=== PATIENT | male | born 2000 | race Hispanic/Latino ===

== ENCOUNTER 2019-08-28 21:03 | Inpatient (IN) | payer OTHER, SELFPAY ==
[~2019-08-28 21:03] MED LIST: Iopamidol 370 76% 100 ML VIAL ONE
[2019-08-28 21:33] LABS: Hemoglobin 14.7 g/dL (14.0-18.0); Mean Corpuscular HGB CONC 32.4 g/dL (32.0-36.0); Mean Corpuscular Hemoglobin 28.5 pg (25.0-35.0); Mean Corpuscular Volume 87.8 fL (78.0-98.0); Mean Platelet Volume 7.3 fL (7.4-10.4); Platelet Count 208 thou/uL (130-400); RBC Distribution Width 12.4 % (11.5-14.5); Red Blood Cell (RBC) Count 5.14 mill/uL (4.00-5.20); White Blood Cell (WBC) Count 18.2 thou/uL (4.8-10.8)
[2019-08-28 21:42] LABS: Actual Bicarbonate (HCO3a) 15.4 mEq/L (22-28); Analyzer IN Cardio ER; Base Excess (BEa) -19.8 mEq/L (-2.0 to +3.0); Carboxyhemoglobin (COHb) 0.3 gm% (0.0-3.0); Hemoglobin (Hb) 14.7 g/dL (11.4-15.4); O2 Tension (PaO2) 68.2 mmHg (80.0-100.0); Potassium - ABG Lab 4.11 mmol/L (3.70-5.30)
[2019-08-28 21:49] LABS: ALT (SGPT) 147 U/L (8-55); AST (SGOT) 157 U/L (10-45); Albumin 3.9 g/dL (3.5-5.0); Alcohol Less than 10 mg/dL (Less than 10); Alkaline Phosphatase 101 U/L (50-130); Anion Gap 29 mmol/L (10-20); BUN (Urea Nitrogen) 14 mg/dL (8.4-21.0); Bilirubin, Total 0.5 mg/dL (0.2-1.2); Calc. Creatinine Clearance 0 mL/min (70-130); Calcium 8.2 mg/dL (7.8-10.44); Carbon Dioxide 18 mmol/L (22-29); Chloride 96 mmol/L (98-107); Estimated GFR-MDRD 36; Globulin 2.5 g/dL (2.4-3.5); Glucose 383 mg/dL (70-105); Potassium 4.7 mmol/L (3.5-5.1); Protein, Total 6.4 g/dL (6.0-8.3); Sodium 138 mmol/L (136-145)
[2019-08-28 21:50] LABS: Acetaminophen Less than 6.0 mcg/mL (10.0-30.0); Alcohol Less than 10 mg/dL (Less than 10); Salicylate Less than 8.0 mg/dL (15.0-30.0)
[2019-08-28 21:51] LABS: Band 23 % (5-11); Lymphocytes 23 % (28-48); MDiff Complete? YES; Monocytes 5 % (0-4); Neutrophil 26 % (31-61); Platelet Morphology Comment Appears Adequate; Polychromasia SLIGHT = 2-3 cells (100X) (0-2/hpf); Reactive Lymphocytes 23 % (0-10)
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
[2019-08-28] MEDS ORDERED: Midazolam HCl 2 mg/2 ml Vial ONE (22:24)
[2019-08-28] MEDS ORDERED: Fentanyl 100 MCG/2 ML VIAL ONE ×2 (22:24→23:20)
--- NOTE | 2019-08-28 22:24 | RAD ---
XR Chest 1 View History: Emergency exam Comparison: None Findings: Stomach is distended. A catheter projects over the left upper hemithorax of unknown locatio n. Left basilar pneumothorax. Likely left rib fractures. Dense left lung opacities. Impression: Limited exam. Markedly gaseous distention of the stomach.
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
[2019-08-28] MEDS ORDERED: Sodium Bicarbonate 2.5 MEQ/5 ML VIAL ONE (22:29)
[2019-08-28] MEDS ORDERED: Sodium Bicarb 50 MEQ/50 ML VIAL ONE (22:29)
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
[2019-08-28] MEDS ORDERED: Dextrose 50% Abboject 50 ML SYRINGE SLOW IVP PRN (23:20)
[2019-08-28] MEDS ORDERED: Dextrose 5% in Water 1,000 ML IV PRN (23:20)
[2019-08-28] MEDS ORDERED: Ondansetron PF 4 MG/2 ML Vial IVP PRN (23:20)
[2019-08-28] MEDS ORDERED: Insulin Regular 300 UNITS/3 ML VIAL SC PRN (23:20)
[2019-08-28] MEDS ORDERED: hydrALAZINE 20 MG/ML VIAL SLOW IVP PRN (23:20)
--- NOTE | 2019-08-28 23:21 | CT ---
CTA Angio Chest W WO Con History: Evaluate for bleeding. Comparison: None. Findings: CT in October chest performed after the intravenous administration of contrast. The left subclavian artery is patent. No active contrast extravasation of the subclavian or axillary artery. There is a blush of active contrast extravasation within the expected location of the anterior circum flex humeral artery. Fracture evaluation will be performed in the subsequent following CT exam. No definite acute aortic injury. Impression: 1. Large contrast extravasation in the left axilla on the expected location of the anterior circumfle x humeral artery. 2. Left mandibular angle and right parasymphyseal mandibular fracture is incompletely evaluated. Faci al CT recommended. 3. Please see cervical spine CT for additional fractures. The lower left vertebral artery does not ap pear to have a dissection. CODE: NINOSKA Bonilla
[2019-08-28] MEDS ORDERED: Ventilator Sedation Protocol 1 EACH FS SCH (23:30)
[2019-08-28] MEDS ORDERED: Lorazepam 2 MG/ML VIAL SLOW IVP PRN (23:31)
[2019-08-28] MEDS ORDERED: Fentanyl BOLUS 250 ML IVPB PRN (23:31)
[2019-08-28] MEDS ORDERED: Propofol BOLUS 1,000 MG/100 ML VIAL IV PRN (23:31)
[2019-08-28] MEDS ORDERED: DISCONTINUE PREVIOUS NARCOTIC PAIN MEDICATIONS AND BENZODIAZEPINES FS SCH (23:31)
[2019-08-28] MEDS ORDERED: Morphine 2 MG/ML SYRINGE SLOW IVP PRN (23:31)
[2019-08-28] MEDS: fentaNYL Citrate/PF 2,000 MCG in Sodium Chloride 0.9% 60 ML IV SCH (23:36)
[2019-08-28] MEDS: Sodium Chloride 0.9% 1,000 ML IV SCH (23:40)
[2019-08-28] MEDS: Propofol 1,000 MG/100 ML VIAL IV PRN (23:44)
--- NOTE | 2019-08-28 23:57 | RAD ---
XR Chest 1 View Portable History: Pneumothorax Comparison: Radiograph same day Findings: Slightly progressive rightward mediastinal shift. Impression: Worsening tension pneumothorax.
[2019-08-29] LABS: Actual Bicarbonate (HCO3a) 21.6 mEq/L (22-28); CO2 Tension 53.3 mmHg (35.0-45.0); Calcium, Ionized 1.03 mmol/L (1.12-1.30); Carboxyhemoglobin (COHb) 0.4 gm% (0.0-3.0); Hemoglobin (Hb) 9.5 g/dL (11.4-15.4); Potassium - ABG Lab 4.03 mmol/L (3.70-5.30)
[2019-08-29] MEDS ORDERED: Sodium Bicarb 50 MEQ/50 ML VIAL ONE (00:02)
[2019-08-29] MEDS ORDERED: Phenylephrine 10 MG/ML VIAL ONE ×2 (00:02→10:41)
[2019-08-29] MEDS ORDERED: Calcium Chloride 1 GM/10 ML Abboject SYRINGE ONE (00:02)
[2019-08-29 00:06] LABS: pH, Arterial 7.23 (7.35-7.45)
[2019-08-29 00:07] LABS: O2 Tension (PaO2) 57.3 mmHg (80.0-100.0); Puncture Site ALINE
[2019-08-29 00:09] LABS: ALV-art Gradient 589.075 (0-20)
[2019-08-29] MEDS: Sodium Chloride 0.9% 1,000 ML IV SCH ×5 (00:40→20:42)
[2019-08-29] MEDS ORDERED: Calcium Chloride 1 GM/10 ML Abboject SYRINGE IVP SCH ×2 (01:00→01:15)
[2019-08-29] MEDS ORDERED: Midazolam HCl 2 mg/2 ml Vial ONE (01:03)
[2019-08-29 01:06] LABS: Actual Bicarbonate (HCO3a) 19.3 mEq/L (22-28); Base Excess (BEa) -8.5 mEq/L (-2.0 to +3.0); CO2 Tension 49.4 mmHg (35.0-45.0); Calcium, Ionized 0.99 mmol/L (1.12-1.30); Carboxyhemoglobin (COHb) 0.6 gm% (0.0-3.0); Hemoglobin (Hb) 11.4 g/dL (11.4-15.4); Potassium - ABG Lab 4.04 mmol/L (3.70-5.30)
[2019-08-29 01:11] LABS: Puncture Site ALINE; pH, Arterial 7.21 (7.35-7.45)
[2019-08-29] MEDS ORDERED: Midazolam HCl 2 mg/2 ml Vial IVP ONE (01:20)
[2019-08-29] MEDS ORDERED: Vecuronium 10 MG VIAL IVP SCH (01:30)
[2019-08-29] MEDS ORDERED: Vecuronium Bromide 50 MG in Sodium Chloride 0.9% 250 ML 250 ML IV SCH (01:30)
[2019-08-29 02:54] VITALS: BMI 34.3
[2019-08-29 03:39] LABS: Actual Bicarbonate (HCO3a) 22.8 mEq/L (22-28); Base Excess (BEa) -3.1 mEq/L (-2.0 to +3.0); CO2 Tension 44.2 mmHg (35.0-45.0); Calcium, Ionized 1.16 mmol/L (1.12-1.30); Carboxyhemoglobin (COHb) 0.7 gm% (0.0-3.0); O2 Tension (PaO2) 63.3 mmHg (80.0-100.0); Potassium - ABG Lab 4.14 mmol/L (3.70-5.30); pH, Arterial 7.33 (7.35-7.45)
[2019-08-29 03:43] LABS: Puncture Site ALINE
[2019-08-29] MEDS ORDERED: CEFAZOLIN 2 GM in Premix Bag 1 BAG IVPB SCH ×2 (04:00→12:00)
[2019-08-29 04:55] LABS: INR-International Normal Ratio 1.1; Prothrombin Time 14.4 SEC (12.0-14.7)
[2019-08-29 04:57] LABS: Anion Gap 25 mmol/L (10-20); BUN (Urea Nitrogen) 14 mg/dL (8.4-21.0); Calc. Creatinine Clearance 121 mL/min (70-130); Calcium 8.6 mg/dL (7.8-10.44); Carbon Dioxide 20 mmol/L (22-29); Chloride 104 mmol/L (98-107); Estimated GFR-MDRD 54; Glucose 130 mg/dL (70-105); Magnesium 1.7 mg/dL (1.7-2.2); Phosphorus 4.4 mg/dL (2.3-4.7); Potassium 4.1 mmol/L (3.5-5.1); Sodium 145 mmol/L (136-145)
[2019-08-29 05:00] LABS: Lactic Acid 8.4 mmol/L (0.5-2.2)
[2019-08-29 05:09] LABS: CK (CPK) 5191 U/L (30-200)
[2019-08-29] MEDS ORDERED: Magnesium 2 GM/50 ML 2 GM in Premix Bag 1 BAG IVPB SCH (05:15)
[2019-08-29 05:16] LABS: Bacteria/HPF None Seen HPF (None Seen); Bilirubin Negative (Negative); Blood, Urine 2+ (Negative); Clarity Clear (Clear); Glucose, Urine (Dipstick) 100 mg/dL (Negative); Leukocyte Negative Leu/uL (Negative); Nitrite Negative (Negative); Protein, Urine (Dipstick) 50 mg/dL (Neg-Trace); RBC/HPF 0-3 HPF (0-3); Squamous Epithelial 0-3 HPF (0-3); Urobilinogen Normal mg/dL (Less than 2)
[2019-08-29 05:20] LABS: Urine Culture Reflex Yes Yes
[2019-08-29 05:23] LABS: Cocaine Metabolite Screen Not Detected (NotDetected); Medtox Reader # READER 4; Methamphetamine Not Detected (NotDetected); Opiate Screen Not Detected (NotDetected); Phencyclidine (PCP) Not Detected (NotDetected); THC/Cannabinoid Screen Not Detected (NotDetected)
[2019-08-29 05:24] LABS: Amphetamine Not Detected (NotDetected); Barbiturates Screen Not Detected (NotDetected); Benzodiazepine Screen Not Detected (NotDetected); Medtox Control Line Valid? VALID (VALID); Methadone Not Detected (NotDetected); Oxycodone Screen Not Detected (NotDetected); Tricyclic Screen Not Detected (NotDetected)
[2019-08-29] MEDS ORDERED: Sodium Chloride 0.9% 1,000 ML IV SCH ×2 (05:25→11:45)
[2019-08-29 05:34] LABS: Band 48 % (5-11); Eosinophils 2 % (0-10); Hemoglobin 10.4 g/dL (14.0-18.0); Lymphocytes 8 % (28-48); MDiff Complete? YES; Mean Corpuscular HGB CONC 35.5 g/dL (32.0-36.0); Mean Corpuscular Hemoglobin 30.6 pg (25.0-35.0); Mean Platelet Volume 7.5 fL (7.4-10.4); Monocytes 8 % (0-4); Neutrophil 34 % (31-61); Platelet Count 91 thou/uL (130-400); Platelet Morphology Comment Appears Decreased; RBC Distribution Width 13.2 % (11.5-14.5); Red Blood Cell (RBC) Count 3.41 mill/uL (4.00-5.20); White Blood Cell (WBC) Count 5.8 thou/uL (4.8-10.8)
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
[2019-08-29 05:59] LABS: Actual Bicarbonate (HCO3a) 21.9 mEq/L (22-28); Base Excess (BEa) -6.5 mEq/L (-2.0 to +3.0); CO2 Tension 57.4 mmHg (35.0-45.0); Carboxyhemoglobin (COHb) 0.6 gm% (0.0-3.0); Hemoglobin (Hb) 11.5 g/dL (11.4-15.4); Potassium - ABG Lab 4.18 mmol/L (3.70-5.30)
[2019-08-29 06:03] LABS: O2 Tension (PaO2) 43.5 mmHg (80.0-100.0); Puncture Site ALINE
[2019-08-29] MEDS ORDERED: Lidocaine 0.5%/Epinephrine 1:200,000 50 ml Vial ONE (06:50)
[2019-08-29] MEDS ORDERED: Thrombin 5000 UNITS/5 ML VIAL ONE (06:50)
[2019-08-29] MEDS ORDERED: Sodium Chloride 0.9% 10 ML ONE (06:50)
[2019-08-29] MEDS ORDERED: Norepinephrine 8 MG/0.9% NS 250 ML ONE (07:05)
[2019-08-29] MEDS: Norepinephrine 8 MG/0.9% NS 250 ML IVPB SCH (07:20)
[2019-08-29] MEDS ORDERED: Vecuronium 10 MG VIAL ONE (07:22)
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
[2019-08-29] MEDS ORDERED: Nitroglycerin 50 MG/250 ML BOT 250 ML ONE (07:34)
[2019-08-29] MEDS ORDERED: niCARdipine 25 MG in Sodium Chloride 0.9% 250 ML 240 ML IVPB SCH (07:45)
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
--- NOTE | 2019-08-29 08:37 | RAD ---
PORTABLE SUPINE CHEST: Date: 08/29/2019 HISTORY: Follow-up left chest tube. CCU follow-up. COMPARISON: 08/28/2019. FINDINGS/IMPRESSION: ET tube and NG tube remain in place. A left chest tube remains in place. Opacification of left hemith orax remains. There are patchy infiltrates throughout the right lung. No significant interval change. POS: [facility]
--- NOTE | 2019-08-29 08:38 | RAD ---
PORTABLE SUPINE CHEST: Date: 08/29/2019 Time: 0643 hours Comparison made to exam from 0536 hours. INDICATION: Follow-up left chest tube. CCU follow-up. FINDINGS: Left chest tube remains in place. There is evidence of left pneumothorax. Diffuse infiltrates through out the right lung. IMPRESSION: Diffuse opacification of the left lung with evidence of left pneumothorax. Patchy infiltrates through out the right lung again noted. POS: [facility]
--- NOTE | 2019-08-29 08:40 | RAD ---
PORTABLE SUPINE CHEST: Date: 08/29/2019 Time: 0648 hours Comparison with exam from 0643 hours. INDICATION: Follow-up left pneumothorax and left chest tube. FINDINGS/IMPRESSION: A second left chest tube has been placed. Left lung is now re-expanded with minimal residual left pne umothorax. Diffuse opacification throughout the left lung. There are patchy infiltrates throughout th e right lung. ET tube and NG tube remain in place. POS: [facility]
[2019-08-29] MEDS ORDERED: FLU VACC QS2019-20(6MOS UP)/PF 60 MCG/0.5 ML SYRINGE IM ONE (09:00)
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
--- NOTE | 2019-08-29 10:10 | OP ---
DATE OF PROCEDURE: 08/29/2019 BRIM CUTTER: Cary Whittington PA-C. 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 Modifier 57 should be added to this surgery as the decision to operate was made on the day I saw the patient. PROCEDURE PERFORMED: Right frontotemporoparietal hemicraniectomy with opening of the dura for reduction of intracranial pressure. DESCRIPTION OF PROCEDURE: After the emergent nature confirmed to his father, the patient was positioned with cervical spine in neutral position with bumps underneath his right hemithorax. Hair was clipped in the right side of his scalp, and a question-daylin incision drawn out. This region was sterilely cleansed, prepared, and draped. Proper patient, pause, and identification were carried out. The question-daylin incision was then reflected, gisel holes fashioned, the flap removed. The brain was very tight and dura opened. There were multiple petechial hemorrhages. Silastic sheeting was laid out and secured. The scalp was then closed in anatomic layers over a subgaleal drain. Copious irrigation and hemostasis were maximized throughout. Job ID: [id number]
[2019-08-29] MEDS ORDERED: Rocuronium Bromide 50 MG/5 ML VIAL ONE (10:26)
[2019-08-29] MEDS ORDERED: PHENYLEPHRINE-NS 100 MCG/ML 10 ML SYRINGE ONE (10:42)
[2019-08-29] MEDS ORDERED: Rocuronium Bromide 10 MG/ML (10ML VIAL) ONE (10:45)
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
--- NOTE | 2019-08-29 11:23 | RAD ---
Exam: XR Finger(s) Lt Min 2 View HISTORY: Left finger pinning COMPARISON: Views left hand on 08/29/2019 FINDINGS: 2 intraoperative fluoroscopic images of the left fingers is provided. Images demonstrate a single pin transfixing the fractures involving the proximal phalanx of the left index and middle fingers with improved alignment of the fracture fragments. IMPRESSION: Postoperative changes related to pinning of the proximal phalanx of the index and middle fingers. Cor relation with intraoperative findings is recommended.
[2019-08-29 12:13] LABS: pH, Arterial 7.31 (7.35-7.45)
[2019-08-29 12:14] LABS: Actual Bicarbonate (HCO3a) 18.7 mEq/L (22-28); Base Excess (BEa) -6.9 mEq/L (-2.0 to +3.0); CO2 Tension 37.9 mmHg (35.0-45.0); Carboxyhemoglobin (COHb) 0.4 gm% (0.0-3.0); Hemoglobin (Hb) 9.1 g/dL (11.4-15.4); O2 Tension (PaO2) 202.1 mmHg (80.0-100.0)
[2019-08-29 12:15] LABS: ALV-art Gradient 463.525 (0-20); Calcium, Ionized 1.07 mmol/L (1.12-1.30); Potassium - ABG Lab 5.32 mmol/L (3.70-5.30); Puncture Site LINE
[2019-08-29] MEDS: Famotidine/PF 20 mg/2ml Vial SLOW IVP SCH ×2 (14:03→20:40)
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
[2019-08-29 16:17] LABS: INR-International Normal Ratio 1.3; PTT 31.8 SEC (22.9-36.1)
[2019-08-29 16:24] LABS: Band 68 % (5-11); Hemoglobin 8.3 g/dL (14.0-18.0); Lymphocytes 3 % (28-48); MDiff Complete? YES; Mean Corpuscular Hemoglobin 31.1 pg (25.0-35.0); Mean Corpuscular Volume 86.2 fL (78.0-98.0); Mean Platelet Volume 7.6 fL (7.4-10.4); Monocytes 2 % (0-4); Neutrophil 23 % (31-61); Platelet Count 54 thou/uL (130-400); Platelet Morphology Comment Appears Decreased; Polychromasia SLIGHT = 2-3 cells (100X) (0-2/hpf); RBC Distribution Width 13.2 % (11.5-14.5); Reactive Lymphocytes 4 % (0-10); Red Blood Cell (RBC) Count 2.68 mill/uL (4.00-5.20); Tear Drops SLIGHT = 2-5 cells (100X) (0-1/hpf); White Blood Cell (WBC) Count 8.1 thou/uL (4.8-10.8)
[2019-08-29] MEDS ORDERED: Aspirin 300 MG Suppository PR SCH (16:30)
[2019-08-29 16:34] LABS: ALT (SGPT) 63 U/L (8-55); AST (SGOT) 184 U/L (10-45); Albumin 3.1 g/dL (3.5-5.0); Alkaline Phosphatase 48 U/L (50-130); Anion Gap 13 mmol/L (10-20); BUN (Urea Nitrogen) 12 mg/dL (8.4-21.0); Bilirubin, Total 0.8 mg/dL (0.2-1.2); Calc. Creatinine Clearance 154 mL/min (70-130); Calcium 7.8 mg/dL (7.8-10.44); Carbon Dioxide 24 mmol/L (22-29); Chloride 109 mmol/L (98-107); Estimated GFR-MDRD 72; Globulin 2.2 g/dL (2.4-3.5); Glucose 126 mg/dL (70-105); Potassium 4.3 mmol/L (3.5-5.1); Protein, Total 5.3 g/dL (6.0-8.3); Sodium 142 mmol/L (136-145)
[2019-08-29] MEDS: fentaNYL Citrate/PF 2,000 MCG in Sodium Chloride 0.9% 60 ML IV SCH (18:38)
--- NOTE | 2019-08-29 19:24 | CT ---
CT BRAIN NONCONTRAST: DATE: 08/29/2019 6:48 PM HISTORY: 18-year-old male with change in mental status. Follow-up cerebral infarctions. Dr. Cortez notified neurosurgery PA Sean Matos of the hemorrhages by [place] direct at 7:12 PM 020. JOSE R Matos responded immediately with reply. COMPARISON: 08/29/2019 5:33 AM FINDINGS: There is a new large right frontotemporal parietal craniectomy defect. In addition to the previously demonstrated large confluent region of cytotoxic edema representing infarction throughout the right parietal and temporal lobes, there are new multifocal moderate sized right parietal and frontal paren chymal hematomas. The mass effect associated with the cytotoxic edema and the vasogenic edema associated with the hematomas, as well as the volume of the hematomas themselves, displaces the synth etic flap bridging the craniectomy defect laterally. The previously demonstrated slight right to left midline shift of the septum pellucidum has a reversed as expected vacuo midline shift to the rig ht by 6 mm, as a result of the craniectomy. The sulci are diffusely effaced consistent with diffusely increased intracranial pressure. The lateral and third ventricles are somewhat small in siz e due to the increased pressure. In addition to the cytotoxic edema in involving right temporal and parietal lobes, this now extends t o involve the right occipital lobe. The previously demonstrated multifocal cytotoxic patchy edema involving watershed zone between left MCA and left BRIANA territories have also progressed, now involvin g left TISSUE REWINDER territory. There are also multifocal new small acute infarctions in the bilateral cerebellar hemispheres. IMPRESSION: 1. Status post right decompressive craniectomy. 2. New multifocal right frontal and parietal intra-axial acute hemorrhages. 3. Interval worsening of bilateral acute infarctions, including the right middle cerebral artery terr itory, bilateral watershed zone territories, bilateral posterior cerebral artery territories, and now new bilateral cerebellar infarctions. 4. Diffusely increased intracranial pressure.
[2019-08-29] MEDS ORDERED: Acetaminophen 650 MG Suppository PR SCH (20:00)
[2019-08-29] MEDS ORDERED: Acetaminophen 650 MG/20.3 ML UDCUP PER TUBE PRN (20:36)
[2019-08-29] MEDS: cefTRIAXone\\ROCEPHIN 2 GM in Sodium Chloride 0.9% 100 ML IVPB SCH (20:40)
[2019-08-29 21:24] LABS: CO2 Tension 88.6 mmHg (35.0-45.0); Puncture Site R FEMORAL; pH, Arterial 6.86 (7.35-7.45)
[2019-08-29] MEDS: Propofol 1,000 MG/100 ML VIAL IV PRN (23:57)
[2019-08-29] MEDS: Acetaminophen 650 MG/20.3 ML UDCUP PER TUBE SCH (23:58)
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
[2019-08-30] MEDS: Sodium Chloride 0.9% 1,000 ML IV SCH ×4 (05:08→20:35)
[2019-08-30] MEDS: Acetaminophen 650 MG/20.3 ML UDCUP PER TUBE SCH ×3 (05:12→17:24)
[2019-08-30 05:42] LABS: #Lymphocytes 0.9 thou/uL (1.20-3.40); #Monocytes 0.4 thou/uL (0.11-0.59); #Neutrophils 6.2 thou/uL (1.40-6.50); %Basophils 0.1 % (0.0-1.0); %Eosinophils 0.2 % (0.0-10.0); %Lymphocytes 11.4 % (28.0-48.0); %Monocytes 5.4 % (0.0-4.0); Hemoglobin 7.9 g/dL (14.0-18.0); Mean Corpuscular HGB CONC 34.9 g/dL (32.0-36.0); Mean Corpuscular Hemoglobin 30.7 pg (25.0-35.0); Mean Corpuscular Volume 87.9 fL (78.0-98.0); Mean Platelet Volume 8.1 fL (7.4-10.4); Platelet Count 61 thou/uL (130-400); RBC Distribution Width 13.1 % (11.5-14.5); Red Blood Cell (RBC) Count 2.58 mill/uL (4.00-5.20); White Blood Cell (WBC) Count 7.5 thou/uL (4.8-10.8)
[2019-08-30 05:44] LABS: INR-International Normal Ratio 1.5; PTT 32.4 SEC (22.9-36.1); Prothrombin Time 18.1 SEC (12.0-14.7)
[2019-08-30 06:06] LABS: Lactic Acid 2.8 mmol/L (0.5-2.2)
[2019-08-30 06:39] LABS: Actual Bicarbonate (HCO3a) 23.7 mEq/L (22-28); Base Excess (BEa) -1.5 mEq/L (-2.0 to +3.0); Calcium, Ionized 1.07 mmol/L (1.12-1.30); Carboxyhemoglobin (COHb) 0.4 gm% (0.0-3.0); Hemoglobin (Hb) 12.1 g/dL (11.4-15.4); Potassium - ABG Lab 3.82 mmol/L (3.70-5.30); pH, Arterial 7.37 (7.35-7.45)
[2019-08-30 06:48] LABS: Anion Gap 12 mmol/L (10-20); BUN (Urea Nitrogen) 12 mg/dL (8.4-21.0); Calc. Creatinine Clearance 182 mL/min (70-130); Calcium 7.5 mg/dL (7.8-10.44); Carbon Dioxide 26 mmol/L (22-29); Chloride 107 mmol/L (98-107); Estimated GFR-MDRD 87; Glucose 134 mg/dL (70-105); Magnesium 1.6 mg/dL (1.7-2.2); Phosphorus 2.5 mg/dL (2.3-4.7); Potassium 3.7 mmol/L (3.5-5.1); Sodium 141 mmol/L (136-145)
[2019-08-30 07:06] LABS: O2 Tension (PaO2) 49.2 mmHg (80.0-100.0); Puncture Site LINE
--- NOTE | 2019-08-30 07:56 | RAD ---
EXAM: Portable chest PROVIDED CLINICAL HISTORY: Respiratory insufficiency COMPARISON: 08/29/2019 FINDINGS: Pneumomediastinum is demonstrated more conspicuously on this examination. Mild improvement in right p erihilar airspace disease. Additional significant interval change with respect to the prior examination is not apparent. IMPRESSION: As above.
--- NOTE | 2019-08-30 08:01 | CT ---
PRELIMINARY REPORT/DIRECT RADIOLOGY/EMERGENCY AFTER HOURS PROCEDURE: This report was discussed with Ana Thakkar RN by Elizabeth aj on Aug 30, 2019 05:49:00 CDT. Addendum electronically signed by Elizabeth aj on August 30, 2019 5:49:20 AM CDT History: Status post right hemicraniectomy for cerebral edema. CT head without contrast. Comparison: 08/29/2019. Findings: There have been extensive postsurgical changes in the interval of right-sided craniectomy w ith absent bone flap. Dense surgical material in place. Extensive edema seen throughout the right cerebrum with herniation through the craniectomy defect. There is an interval development of parenchymal hemorrhage centered throughout the right frontal and parietal regions of the right cerebrum with increased surrounding edema. Increased conspicuity of areas of cerebral edema in the left cerebrum, particularly in the posterior frontoparietal region. Effacement of overlying sulci. There is approximately 5-6 mm [id number] midline shift. The cisterns are not effaced. No tonsill ar herniation. Patchy areas of edema within the bilateral cerebellar hemispheres are increased in conspicuity as wel l. Scalp hematoma and soft tissue swelling over the craniectomy changes. Fluid throughout the paranasal sinuses. Retropharyngeal gas is seen at the edge of the field of view. Orbital soft tissues are unremarkable. Scalp percutaneous subcutaneous drain in place. Impression: 1. Status post right hemicraniectomy. Extensive edema throughout the right cerebral hemisphere agai n noted with herniation of portions of the right cerebrum through the craniectomy defect. 5-6 mm [id number] midline shift. 2. Interval development of parenchymal hemorrhage throughout the right frontal and parietal regions. Worsening surrounding edema. 3. Interval increased conspicuity of left sided frontoparietal cerebral and bilateral cerebellar mel ma. 4. Fluid throughout the paranasal sinuses. ELECTRONICALLY SIGNED BY: Sixto Scott MD Aug 30, 2019 5:40:12 AM CDT FINAL REPORT CT BRAIN WITHOUT CONTRAST: PROVIDED CLINICAL HISTORY: Cerebral edema, intracranial hemorrhage. COMPARISON: 08/29/2019 6:48 PM. FINDINGS: The ventricular system is unchanged in size and morphology. Craniectomy changes involving the right f rontotemporal skull are redemonstrated. There is persistent herniation of intracranial contents through the craniectomy defect. Parenchymal hemorrhage involving herniated cerebrum is redemonstrated , similar to prior. Multifocal infarction involving cerebrum and cerebellum redemonstrated, similar to prior. There is no shift of the midline structures. The basilar cisterns appear patent. The extrac ranial soft tissues and osseous structures appear similar with the exception of more conspicuous soft tissue gas presumably reflecting cranial extent of pneumomediastinum. IMPRESSION: No significant interval change. The preliminary report was created with respect to comparison examina tion 08/29/2019 5:33 AM and is thus incorrect with respect to its described interval findings. Transcribed Date/Time: 08/30/2019 8:13 AM
[2019-08-30] MEDS ORDERED: Magnesium Sulfate 4 GM, Potassium Phosphate 30 MMOL in Sodium Chloride 0.9% 250 ML 250 ML IVPB SCH (08:15)
[2019-08-30] MEDS: Ferrous Sulfate 325 MG TAB PO SCH ×2 (08:55→16:29)
[2019-08-30] MEDS: Ascorbic Acid 500 mg Chewable Tablet PO SCH ×2 (08:55→16:29)
[2019-08-30] MEDS: Famotidine/PF 20 mg/2ml Vial SLOW IVP SCH ×2 (08:57→20:29)
[2019-08-30] MEDS ORDERED: Aspirin 325 MG TAB PO SCH (09:00)
[2019-08-30] MEDS ORDERED: levETIRAcetam In NaCl (Iso-Os) 1,000 MG in Premix Bag 1 BAG IVPB SCH (10:15)
[2019-08-30 10:43] LABS: Actual Bicarbonate (HCO3a) 23.2 mEq/L (22-28); CO2 Tension 30.4 mmHg (35.0-45.0); Calcium, Ionized 0.96 mmol/L (1.12-1.30); Carboxyhemoglobin (COHb) 0.8 gm% (0.0-3.0); Hemoglobin (Hb) 6.3 g/dL (11.4-15.4); O2 Tension (PaO2) 160.8 mmHg (80.0-100.0); Potassium - ABG Lab 3.51 mmol/L (3.70-5.30)
[2019-08-30 10:45] LABS: Puncture Site LINE
[2019-08-30] MEDS: SYSTANE 3.5 GM TUBE EA EYE SCH ×2 (11:38→20:33)
[2019-08-30 12:01] LABS: Actual Bicarbonate (HCO3a) 25.4 mEq/L (22-28); Base Excess (BEa) 0.5 mEq/L (-2.0 to +3.0); CO2 Tension 42.1 mmHg (35.0-45.0); Calcium, Ionized 1.05 mmol/L (1.12-1.30); Carboxyhemoglobin (COHb) 1.1 gm% (0.0-3.0); Hemoglobin (Hb) 7.4 g/dL (11.4-15.4); O2 Tension (PaO2) 103.7 mmHg (80.0-100.0); Potassium - ABG Lab 3.97 mmol/L (3.70-5.30)
[2019-08-30 12:02] LABS: Puncture Site LINE
[2019-08-30 12:03] LABS: ALV-art Gradient 556.675 (0-20)
[2019-08-30 13:04] LABS: Hemoglobin 7.2 g/dL (14.0-18.0); Mean Corpuscular HGB CONC 34.7 g/dL (32.0-36.0); Mean Corpuscular Hemoglobin 30.8 pg (25.0-35.0); Mean Corpuscular Volume 88.7 fL (78.0-98.0); Mean Platelet Volume 8.1 fL (7.4-10.4); Platelet Count 76 thou/uL (130-400); RBC Distribution Width 13.2 % (11.5-14.5); Red Blood Cell (RBC) Count 2.34 mill/uL (4.00-5.20); White Blood Cell (WBC) Count 6.8 thou/uL (4.8-10.8)
--- NOTE | 2019-08-30 13:11 | PRG ---
DATE OF SERVICE: 08/30/2019 Mr. Burgos is postoperative day 1 from right-sided hemicraniectomy. Head CT looks as expected with blossoming of hemorrhages in the stroke areas of the brain due to reduction in intracranial pressure. His midline shift has resolved. I am not concerned about the hemorrhage, it is what I would expect to see once the pressure is reduced in the head as the autoregulation of blood flow to the areas of stroke is just regulated. His cerebral edema remains significant, not again to be expected. He does have patency of his cisterns, which is important and I do not see any evidence of strokes in the brainstem. We will get a CTA of the neck and head tomorrow. If it demonstrates no evidence of carotid or vertebral dissection, we will plan for stopping of the aspirin. I have held the aspirin this morning simply because of his thrombocytopenia. If he has no evidence of dissection, then his strokes were likely due to hypoxia from significant lung injury. He remains quite sick. I have let his father know that it will simply take time to know how he is going to do. There was question of seizure last night. He is on Keppra. Job ID: [id number]
[2019-08-30 13:25] LABS: Band 46 % (5-11); Eosinophils 2 % (0-10); Lymphocytes 11 % (28-48); MDiff Complete? YES; Metamyelocyte 1 % (0-0); Monocytes 5 % (0-4); Neutrophil 34 % (31-61); Platelet Morphology Comment Appears Decreased; Polychromasia SLIGHT = 2-3 cells (100X) (0-2/hpf)
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
[2019-08-30] MEDS ORDERED: Refresh Lacri-lube Opth Oint 7 GM TUBE EA EYE SCH (15:00)
--- NOTE | 2019-08-30 15:39 | CT ---
"PRELIMINARY REPORT" CT Chest Abd Pelvis Trauma W Con Limited CT thoracic spine with contrast Limited CT of the sacral spine without contrast History: Trauma Comparison: CTA chest same day Findings: Tension left pneumothorax with left basilar thoracostomy tube tip at the level of the mid t horacic cavity. Rightward mediastinal shift. Pneumothorax involves approximately 60-70% of the left hemithorax volume. Subcutaneous emphysema throughout the neck. There is extensive contrast blush through a defect in the left pectoralis major and minor muscles, ma rketed active contrast extravasation. There is also venous contrast extravasation along the left thoracodorsal vein. Displaced fracture tip of the coracoid distracted inferiorly approximately 2 cm. Fracture of the left lesser tuberosity. The sternum and manubrium are intact. C7 spinous process fracture. Remainder of the thoracic and lumbar spine are without fracture. Fracture of the right posterior first rib. Nondisplaced fracture right posterior third rib. Minimally displaced left posterior first rib fracture. Remainder of the spinous processes are intact. Lumbar spine transverse processes are intact. No SI joint widening. Pubic symphysis is intact. King catheter is in place. Contusions throughout the right lung. Near-complete consolidation of the left lung. No evidence for acute aortic injury. No hepatic injury. No splenic injury. There is abnormal stranding in the retroperitoneum of the pancr eatic head/uncinate process as well as the second and third portions of the duodenum. Abnormal submucosal edema third portion of the duodenum. Abnormal submucosal edema throughout the proximal small bowel with mucosal hyperenhancement suggestin g a component of shock bowel. The left hemidiaphragm is depressed. Celiac trunk and superior mesenteric arteries are patent. No renal laceration. No evidence for injury to the inferior vena cava. Impression: 1. Large left tension pneumothorax involving 60-70% of the left hemithorax volume. 2. Bilateral first rib fractures as well as nondisplaced right posterior third rib fracture. 3. Contusions throughout the right lung with near complete left lung volume loss. 4. Active contrast extravasation along the expected location of the left anterior circumflex humeral artery with large volume hematoma just deep to the left wound packing through the pectoralis musculature. 5. Small volume venous hemorrhage along the expected location of the thoracodorsal vein. 6. Distracted fracture coracoid process on the left. 7. Fracture of the left lesser tuberosity of the humerus. 8. Large left pectoralis major and minor lacerations and hematomas with radiopaque debris both superf icial and deep. 9. Findings highly concerning for a retroperitoneal injury with stranding along the pancreatic head/u ncinate process as well as second and third portions of the duodenum. 10. Findings of shock bowel. Transcribed Date/Time: 08/30/2019 3:38 PM
[2019-08-30] MEDS: Propofol 1,000 MG/100 ML VIAL IV PRN ×2 (16:28→21:27)
[2019-08-30 17:34] LABS: Base Excess (BEa) 1.9 mEq/L (-2.0 to +3.0); CO2 Tension 44.8 mmHg (35.0-45.0); Calcium, Ionized 1.06 mmol/L (1.12-1.30); Hemoglobin (Hb) 8.7 g/dL (11.4-15.4); O2 Tension (PaO2) 61.5 mmHg (80.0-100.0); Potassium - ABG Lab 4.03 mmol/L (3.70-5.30)
[2019-08-30 17:36] LABS: Puncture Site RR
[2019-08-30 18:38] LABS: Actual Bicarbonate (HCO3a) 23.7 mEq/L (22-28); CO2 Tension 38.9 mmHg (35.0-45.0); Calcium, Ionized 1.07 mmol/L (1.12-1.30); Carboxyhemoglobin (COHb) 0.6 gm% (0.0-3.0); Potassium - ABG Lab 3.96 mmol/L (3.70-5.30)
[2019-08-30 18:39] LABS: Puncture Site ART LINE
[2019-08-30 18:40] LABS: ALV-art Gradient 349.825 (0-20)
[2019-08-30] MEDS: cefTRIAXone\\ROCEPHIN 2 GM in Sodium Chloride 0.9% 100 ML IVPB SCH (20:28)
[2019-08-30] MEDS ORDERED: Sodium Chloride 0.9% 500 ML IVPB SCH (23:45)
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
[2019-08-31] MEDS: Acetaminophen 650 MG/20.3 ML UDCUP PER TUBE SCH ×5 (00:08→17:27)
[2019-08-31] MEDS ORDERED: Sodium Chloride 0.9% 1,000 ML IV SCH (00:15)
[2019-08-31 00:49] LABS: Anion Gap 15 mmol/L (10-20); BUN (Urea Nitrogen) 9 mg/dL (8.4-21.0); Calc. Creatinine Clearance 209 mL/min (70-130); Calcium 7.8 mg/dL (7.8-10.44); Carbon Dioxide 22 mmol/L (22-29); Chloride 113 mmol/L (98-107); Estimated GFR-MDRD Greater than 90; Glucose 120 mg/dL (70-105); Potassium 4.1 mmol/L (3.5-5.1); Sodium 146 mmol/L (136-145)
[2019-08-31] MEDS: Sodium Chloride 0.9% 1,000 ML IV SCH (03:04)
[2019-08-31] MEDS ORDERED: Labetalol HCl 100 MG/20 ML VIAL SLOW IVP SCH ×2 (04:30→06:45)
[2019-08-31 04:35] LABS: Anion Gap 14 mmol/L (10-20); BUN (Urea Nitrogen) 8 mg/dL (8.4-21.0); Calc. Creatinine Clearance 207 mL/min (70-130); Calcium 8.1 mg/dL (7.8-10.44); Carbon Dioxide 23 mmol/L (22-29); Chloride 114 mmol/L (98-107); Estimated GFR-MDRD Greater than 90; Glucose 152 mg/dL (70-105); Magnesium 2.3 mg/dL (1.7-2.2); Potassium 3.9 mmol/L (3.5-5.1); Sodium 147 mmol/L (136-145)
[2019-08-31 04:42] LABS: Lactic Acid 3.4 mmol/L (0.5-2.2)
[2019-08-31] MEDS ORDERED: Potassium Phosphate 15 MMOL in Sodium Chloride 0.9% 250 ML 250 ML IVPB SCH ×2 (04:45→08:00)
[2019-08-31] MEDS: Propofol 1,000 MG/100 ML VIAL IV PRN (04:47)
[2019-08-31] MEDS: Lactated Ringer's 1,000 ML IV SCH ×2 (04:53→07:45)
[2019-08-31 04:56] LABS: CK (CPK) 10259 U/L (30-200)
[2019-08-31 05:23] LABS: Band 47 % (5-11); Hemoglobin 8.2 g/dL (14.0-18.0); Lymphocytes 5 % (28-48); MDiff Complete? YES; Mean Corpuscular HGB CONC 34.6 g/dL (32.0-36.0); Mean Corpuscular Hemoglobin 30.5 pg (25.0-35.0); Mean Corpuscular Volume 88.3 fL (78.0-98.0); Mean Platelet Volume 7.9 fL (7.4-10.4); Monocytes 2 % (0-4); Neutrophil 46 % (31-61); Platelet Count 99 thou/uL (130-400); Platelet Morphology Comment Appears Decreased; RBC Distribution Width 12.8 % (11.5-14.5); Red Blood Cell (RBC) Count 2.69 mill/uL (4.00-5.20); White Blood Cell (WBC) Count 11.2 thou/uL (4.8-10.8)
[2019-08-31] MEDS ORDERED: Lactated Ringer's 500 ML IV SCH (05:30)
[2019-08-31] MEDS: Norepinephrine 8 MG/0.9% NS 250 ML IVPB SCH (06:43)
[2019-08-31 06:59] LABS: Actual Bicarbonate (HCO3a) 21.7 mEq/L (22-28); CO2 Tension 32.3 mmHg (35.0-45.0); Carboxyhemoglobin (COHb) 0.6 gm% (0.0-3.0); Hemoglobin (Hb) 6.7 g/dL (11.4-15.4); Potassium - ABG Lab 3.71 mmol/L (3.70-5.30); pH, Arterial 7.45 (7.35-7.45)
[2019-08-31 07:01] LABS: Puncture Site ALINE
[2019-08-31 07:02] LABS: ALV-art Gradient 230.125 (0-20)
[2019-08-31] MEDS: Vasopressin 40 UNIT, Admixture Fee 1 EACH in Sodium Chloride 0.9% 100 ML IV SCH ×2 (07:51→16:38)
--- NOTE | 2019-08-31 07:58 | RAD ---
CHEST 1 VIEW: Date: 08/31/2019 INDICATION: History of respiratory failure. COMPARISON: Prior exam dated 08/30/2019. FINDINGS: Patient remains intubated with gastric catheter placement. There are two left-sided thoracostomy tube s which are unchanged. Parenchymal opacities involving the left lung appear slightly improved. Air sp lesley disease of the right lung is also improved. No pneumothorax is evident. Osseous structures appear unchanged. The degree of subcutaneous emphysema involving the left chest wall is improved. The right subclavian vascular sheath is unchanged in position. IMPRESSION: 1. Improving air space disease bilaterally. There is a persistent area of prominent consolidation wi thin the left mid lung. 2. No pneumothorax. 3. Improving left chest wall subcutaneous emphysema. 4. Stable tubes and lines. POS: [facility]
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
[2019-08-31 08:43] LABS: INR-International Normal Ratio 1.3; PTT 30.8 SEC (22.9-36.1); Prothrombin Time 16.1 SEC (12.0-14.7)
[2019-08-31] MEDS: Famotidine/PF 20 mg/2ml Vial SLOW IVP SCH (09:15)
[2019-08-31] MEDS: Ascorbic Acid 500 mg Chewable Tablet PO SCH (09:15)
[2019-08-31] MEDS: SYSTANE 3.5 GM TUBE EA EYE SCH ×2 (09:16→16:38)
[2019-08-31] MEDS: Ferrous Sulfate 325 MG TAB PO SCH (09:16)
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
[2019-08-31] MEDS: Piperacillin/Tazobactam 4.5 GM in Sodium Chloride 0.9% 100 ML IVPB SCH ×2 (11:14→16:39)
[2019-08-31] MEDS ORDERED: methylPREDNISolone Sod Succ 2 GM in Sodium Chloride 0.9% 100 ML IVPB SCH (11:30)
[2019-08-31] MEDS ORDERED: Insulin Regular 300 UNITS/3 ML VIAL IVP SCH (11:30)
[2019-08-31] MEDS ORDERED: Levothyroxine Sodium 400 MCG in Sodium Chloride 0.9% 100 ML IVPB SCH ×2 (11:30→16:15)
[2019-08-31] MEDS ORDERED: Dextrose 50% Abboject 50 ML SYRINGE SLOW IVP SCH (11:30)
[2019-08-31 11:46] LABS: Actual Bicarbonate (HCO3a) 24.9 mEq/L (22-28); Base Excess (BEa) 0.6 mEq/L (-2.0 to +3.0); CO2 Tension 37.9 mmHg (35.0-45.0); Calcium, Ionized 1.25 mmol/L (1.12-1.30); Carboxyhemoglobin (COHb) 0.6 gm% (0.0-3.0); Hemoglobin (Hb) 5.7 g/dL (11.4-15.4); O2 Tension (PaO2) 74.2 mmHg (80.0-100.0); Potassium - ABG Lab 3.41 mmol/L (3.70-5.30); pH, Arterial 7.44 (7.35-7.45)
[2019-08-31 11:56] LABS: Base Excess (BEa) 0.6 mEq/L (-2.0 to +3.0); CO2 Tension 38.9 mmHg (35.0-45.0); Calcium, Ionized 1.23 mmol/L (1.12-1.30); Carboxyhemoglobin (COHb) 0.9 gm% (0.0-3.0); Hemoglobin (Hb) 5.6 g/dL (11.4-15.4); O2 Tension (PaO2) 72.6 mmHg (80.0-100.0); Potassium - ABG Lab 3.38 mmol/L (3.70-5.30); pH, Arterial 7.43 (7.35-7.45)
[2019-08-31 11:57] LABS: Puncture Site ALINE
[2019-08-31 11:57] LABS: Puncture Site ALINE
--- NOTE | 2019-08-31 12:16 | RAD ---
EXAM: Portable chest PROVIDED CLINICAL HISTORY: Hypotension COMPARISON: 08/31/2019 4:53 AM FINDINGS: Significant interval change with respect to the prior examination is not apparent. IMPRESSION: As above.
[2019-08-31 13:41] LABS: Anisocytosis SLIGHT = 6-15 cells (100X) (0-5/hpf); Band 61 % (5-11); Eosinophils 1 % (0-10); Hemoglobin 7.1 g/dL (14.0-18.0); Lymphocytes 16 % (28-48); MDiff Complete? YES; Mean Corpuscular HGB CONC 35.1 g/dL (32.0-36.0); Mean Corpuscular Hemoglobin 31.1 pg (25.0-35.0); Mean Corpuscular Volume 88.6 fL (78.0-98.0); Mean Platelet Volume 7.6 fL (7.4-10.4); Metamyelocyte 1 % (0-0); Monocytes 4 % (0-4); Myelocyte 1 % (0-0); Neutrophil 15 % (31-61); Platelet Count 67 thou/uL (130-400); Platelet Morphology Comment Appears Decreased; Polychromasia MODERATE = 3-4 cells (100X) (0-2/hpf); RBC Distribution Width 12.7 % (11.5-14.5); Reactive Lymphocytes 1 % (0-10); Red Blood Cell (RBC) Count 2.29 mill/uL (4.00-5.20); White Blood Cell (WBC) Count 6.6 thou/uL (4.8-10.8)
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
[2019-08-31 15:58] VITALS: BP 91/49
[2019-08-31] MEDS ORDERED: Albumin 5% 500 ML ONE (15:59)
[2019-08-31 16:08] LABS: Actual Bicarbonate (HCO3a) 26.3 mEq/L (22-28); Base Excess (BEa) 1.8 mEq/L (-2.0 to +3.0); CO2 Tension 40.9 mmHg (35.0-45.0); Calcium, Ionized 1.18 mmol/L (1.12-1.30); Carboxyhemoglobin (COHb) 2.3 gm% (0.0-3.0); Hemoglobin (Hb) 7.3 g/dL (11.4-15.4); O2 Tension (PaO2) 71.3 mmHg (80.0-100.0); Potassium - ABG Lab 3.49 mmol/L (3.70-5.30); pH, Arterial 7.43 (7.35-7.45)
[2019-08-31 16:10] LABS: Puncture Site ALINE
[2019-08-31 16:11] LABS: ALV-art Gradient 305.375 (0-20)
[2019-08-31] MEDS ORDERED: Sodium Chloride 0.45% 1,000 ML IV SCH ×2 (16:15→17:30)
[2019-08-31] MEDS ORDERED: Hydrocortisone Sod Succ/PF 100 mg/2 ml Vial IVP SCH (16:30)
[2019-08-31 17:49] VITALS: TEMP 98.3
[2019-08-31] MEDS ORDERED: Piperacillin/Tazobactam 4.5 GM in Sodium Chloride 0.9% 100 ML IVPB SCH (23:00)
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
[2019-09-02 00:56] LABS: Base Excess (BEa) 1.7 mEq/L (-2.0 to +3.0); Calcium, Ionized 1.19 mmol/L (1.12-1.30); Carboxyhemoglobin (COHb) 0.9 gm% (0.0-3.0); Hemoglobin (Hb) 7.8 g/dL (11.4-15.4); O2 Tension (PaO2) 176.7 mmHg (80.0-100.0); pH, Arterial 7.44 (7.35-7.45)
[2019-09-02 00:58] LABS: Puncture Site ALINE
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
== END 2019-08-31 16:15 | disposition expired | DRG 957 ==
LOC: EDBD 21:03 → ERS 21:03 → SDC/OP 21:43 → CCU 23:15
PROVIDERS: ADMIT Surgery; ATTEND Surgery
PROC: 0BH17EZ Insertion of Endotracheal Airway into Trachea, Via Natural or Artificial Opening (ICD-10-PCS; principal; 2019-08-28)
PROC: 5A1945Z Respiratory Ventilation, 24-96 Consecutive Hours (ICD-10-PCS; 2019-08-28)
PROC: 0W9B30Z Drainage of Left Pleural Cavity with Drainage Device, Percutaneous Approach (ICD-10-PCS; 2019-08-28)
PROC: 0KBJ0ZZ Excision of Left Thorax Muscle, Open Approach (ICD-10-PCS; 2019-08-28)
PROC: 3E10X8Z Irrigation of Skin and Mucous Membranes using Irrigating Substance (ICD-10-PCS; 2019-08-28)
PROC: 00N00ZZ Release Brain, Open Approach (ICD-10-PCS; 2019-08-29)
PROC: 0PSV34Z Reposition Left Finger Phalanx with Internal Fixation Device, Percutaneous Approach (ICD-10-PCS; 2019-08-29)
PROC: 0JBP0ZZ Excision of Left Lower Leg Subcutaneous Tissue and Fascia, Open Approach (ICD-10-PCS; 2019-08-29)
PROC: 0B968ZZ Drainage of Right Lower Lobe Bronchus, Via Natural or Artificial Opening Endoscopic (ICD-10-PCS; 2019-08-30)
DX: S06.1X1A Traumatic cerebral edema with loss of consciousness of 30 minutes or less, initial encounter (principal); S27.2XXA Traumatic hemopneumothorax, initial encounter; T79.4XXA Traumatic shock, initial encounter; S82.832B Other fracture of upper and lower end of left fibula, initial encounter for open fracture type I or II; J96.02 Acute respiratory failure with hypercapnia; J96.01 Acute respiratory failure with hypoxia; S22.43XA Multiple fractures of ribs, bilateral, initial encounter for closed fracture; S36.899A Unspecified injury of other intra-abdominal organs, initial encounter; S62.611B Displaced fracture of proximal phalanx of left index finger, initial encounter for open fracture; S62.613B Displaced fracture of proximal phalanx of left middle finger, initial encounter for open fracture; S12.690A Other displaced fracture of seventh cervical vertebra, initial encounter for closed fracture; S12.290A Other displaced fracture of third cervical vertebra, initial encounter for closed fracture; S12.390A Other displaced fracture of fourth cervical vertebra, initial encounter for closed fracture; S12.490A Other displaced fracture of fifth cervical vertebra, initial encounter for closed fracture; S22.32XA Fracture of one rib, left side, initial encounter for closed fracture; S22.31XA Fracture of one rib, right side, initial encounter for closed fracture; S27.321A Contusion of lung, unilateral, initial encounter; S21.102A Unspecified open wound of left front wall of thorax without penetration into thoracic cavity, initial encounter; D62 Acute posthemorrhagic anemia; E87.2 Acidosis; N17.9 Acute kidney failure, unspecified; S36.229A Contusion of unspecified part of pancreas, initial encounter; S36.420A Contusion of duodenum, initial encounter; S65.902A Unspecified injury of unspecified blood vessel at wrist and hand level of left arm, initial encounter; S21.112A Laceration without foreign body of left front wall of thorax without penetration into thoracic cavity, initial encounter; R40.2313 Coma scale, best motor response, none, at hospital admission; R40.2113 Coma scale, eyes open, never, at hospital admission; R40.2213 Coma scale, best verbal response, none, at hospital admission; S02.609A Fracture of mandible, unspecified, initial encounter for closed fracture; S01.81XA Laceration without foreign body of other part of head, initial encounter; S01.412A Laceration without foreign body of left cheek and temporomandibular area, initial encounter; S06.9X0A Unspecified intracranial injury without loss of consciousness, initial encounter; E83.42 Hypomagnesemia; S42.132A Displaced fracture of coracoid process, left shoulder, initial encounter for closed fracture; S62.391A Other fracture of second metacarpal bone, left hand, initial encounter for closed fracture; D69.6 Thrombocytopenia, unspecified; E87.6 Hypokalemia; E83.39 Other disorders of phosphorus metabolism; V49.60XA Unspecified car occupant injured in collision with unspecified motor vehicles in traffic accident, initial encounter; Y93.89 Activity, other specified; Y92.89 Other specified places as the place of occurrence of the external cause
CPT/HCPCS: 32551; 36416; 36430; 36556; 51703; 70450; 70486; 71045; 71260; 71275; 72125; 72170; 74177; 76000; 78610; 80048; 80053; 80306; 80307; 81001; 82150; 82550; 82552; 82805; 83605; 83690; 83735; 83930; 83935; 84100; 85025; 85384; 85610; 85730; 86850; 86900; 86901; 87040; 87070; 87086; 87205; 90471; 94002; 94003; 94640; 94760; 96374; A9521; C1769; G0390; J0360; J0690; J0696; J1580; J1720; J1815; J1953; J2001; J2060; J2250; J2370; J2543; J2597; J2704; J3010; J3475; J3490; J7050; J7620; L0174; P9012; P9016; P9035; P9045; P9048; P9059; Q9967; S0028

== ENCOUNTER 2019-08-31 16:15 | Day surgery (SDC) | payer OTHER ==
[2019-08-31] MEDS ORDERED: Albuterol Sulfate 2.5 mg/0.5 ml Neb ONE (18:23)
[2019-08-31] MEDS ORDERED: Levothyroxine Sodium 400 MCG in Sodium Chloride 0.9% 100 ML IVPB SCH (18:30)
[2019-08-31] MEDS ORDERED: Vasopressin 40 UNIT, Admixture Fee 1 EACH in Sodium Chloride 0.9% 100 ML IV SCH (18:30)
[2019-08-31] MEDS: Sodium Chloride 0.45% 1,000 ML IV SCH (18:48)
[2019-08-31] MEDS ORDERED: Albuterol Sulfate 2.5 mg/3 ml Neb NEB PRN (19:00)
[2019-08-31] MEDS ORDERED: methylPREDNISolone Sod Succ 2 GM in Sodium Chloride 0.9% 100 ML IVPB SCH (19:00)
[2019-08-31 19:29] LABS: INR-International Normal Ratio 1.3; PTT 29.7 SEC (22.9-36.1)
[2019-08-31] MEDS: Phytonadione 10 MG in Sodium Chloride 0.9% 50 ML IVPB SCH ×2 (19:30→23:21)
[2019-08-31 19:31] LABS: Hemoglobin A1c 5.4 % (4.0-6.0)
[2019-08-31 19:41] LABS: Band 59 % (5-11); Eosinophils 3 % (0-10); Hemoglobin 7.4 g/dL (14.0-18.0); Lymphocytes 10 % (28-48); MDiff Complete? YES; Mean Corpuscular HGB CONC 35.2 g/dL (32.0-36.0); Mean Corpuscular Hemoglobin 31.1 pg (25.0-35.0); Mean Corpuscular Volume 88.4 fL (78.0-98.0); Mean Platelet Volume 8.2 fL (7.4-10.4); Monocytes 3 % (0-4); Neutrophil 21 % (31-61); Nucleated RBC 3 % (0); Platelet Count 84 thou/uL (130-400); Platelet Morphology Comment Appears Decreased; Polychromasia MARKED = >4 cells (100X) (0-2/hpf); RBC Distribution Width 12.9 % (11.5-14.5); Reactive Lymphocytes 4 % (0-10); Red Blood Cell (RBC) Count 2.37 mill/uL (4.00-5.20); White Blood Cell (WBC) Count 8.3 thou/uL (4.8-10.8)
[2019-08-31 19:46] LABS: ALT (SGPT) 76 U/L (8-55); AST (SGOT) 124 U/L (10-45); Albumin 3.1 g/dL (3.5-5.0); Alkaline Phosphatase 51 U/L (50-130); Anion Gap 12 mmol/L (10-20); BUN (Urea Nitrogen) 9 mg/dL (8.4-21.0); Bilirubin, Direct 0.5 mg/dL (0.1-0.3); Calc. Creatinine Clearance 0 mL/min (70-130); Calcium 8.3 mg/dL (7.8-10.44); Carbon Dioxide 23 mmol/L (22-29); Chloride 116 mmol/L (98-107); Estimated GFR-MDRD Greater than 90; Gamma GT (GGT) 32 U/L (12-64); Globulin 2.3 g/dL (2.4-3.5); Glucose 126 mg/dL (70-105); Lipase 7 U/L (8-78); Magnesium 1.8 mg/dL (1.7-2.2); Potassium 3.5 mmol/L (3.5-5.1); Protein, Total 5.4 g/dL (6.0-8.3); Sodium 147 mmol/L (136-145)
[2019-08-31 19:49] LABS: Troponin I 1.873 ng/mL (< 0.028)
--- NOTE | 2019-08-31 19:58 | RAD ---
SINGLE VIEW OF THE CHEST: 08/31/19 COMPARISON: 08/31/19 HISTORY: Organ donor. Brain patient. FINDINGS: Single view of the chest shows a normal sized cardiomediastinal silhouette. There is an endotracheal tube with its tip at the upper border of the clavicles. An NG tube is seen in the stomach. There is s ubcutaneous air in the neck. This is stable compared to the prior exam. An area of fluffy air space o pacity is seen in the left lung. IMPRESSION: Stable exam. POS: [facility]
[2019-08-31 20:19] LABS: CK (CPK) 6592 U/L (30-200)
[2019-08-31 20:36] LABS: Bacteria/HPF None Seen HPF (None Seen); Bilirubin Negative (Negative); Blood, Urine 2+ (Negative); Clarity Clear (Clear); Glucose, Urine (Dipstick) Normal (Negative); Leukocyte Negative Leu/uL (Negative); Nitrite Negative (Negative); Protein, Urine (Dipstick) 50 mg/dL (Neg-Trace); RBC/HPF 0-3 HPF (0-3); Squamous Epithelial 0-3 HPF (0-3); Urobilinogen Normal mg/dL (Less than 2)
[2019-08-31] MEDS: Levothyroxine Sodium 400 MCG in Sodium Chloride 0.9% 100 ML IVPB SCH (21:52)
[2019-08-31] MEDS: Albuterol Sulfate 2.5 mg/3 ml Neb NEB SCH (21:58)
[2019-08-31 22:06] LABS: Base Excess (BEa) -2.4 mEq/L (-2.0 to +3.0); CO2 Tension 36.1 mmHg (35.0-45.0); Calcium, Ionized 1.16 mmol/L (1.12-1.30); Carboxyhemoglobin (COHb) 0.9 gm% (0.0-3.0); Hemoglobin (Hb) 9.2 g/dL (11.4-15.4); O2 Tension (PaO2) 72.8 mmHg (80.0-100.0); Potassium - ABG Lab 3.68 mmol/L (3.70-5.30)
[2019-08-31 22:08] LABS: Puncture Site ART LINE
[2019-08-31 22:09] LABS: ALV-art Gradient 238.575 (0-20)
[2019-08-31] MEDS ORDERED: Piperacillin/Tazobactam 4.5 GM in Sodium Chloride 0.9% 100 ML IVPB SCH (23:00)
[2019-08-31] MEDS: Piperacillin/Tazobactam 3.375 GM in Sodium Chloride 0.9% 100 ML IVPB SCH (23:31)
[2019-09-01] MEDS: Albumin 5% 250 ML ONE ×2 (00:23→13:11)
[2019-09-01] MEDS ORDERED: Albumin 25% 25 GM/100 ML BOT IVPB SCH ×2 (00:45→16:15)
[2019-09-01 01:18] LABS: #Eosinphils 0.1 thou/uL (0.0-0.7); #Lymphocytes 0.5 thou/uL (1.20-3.40); #Monocytes 0.4 thou/uL (0.11-0.59); #Neutrophils 5.4 thou/uL (1.40-6.50); %Basophils 0.4 % (0.0-1.0); %Eosinophils 0.8 % (0.0-10.0); %Lymphocytes 7.2 % (28.0-48.0); %Monocytes 5.7 % (0.0-4.0); %Neutrophils 85.9 % (31.0-61.0); Hemoglobin 7.4 g/dL (14.0-18.0); Mean Corpuscular HGB CONC 35.3 g/dL (32.0-36.0); Mean Corpuscular Hemoglobin 31.4 pg (25.0-35.0); Mean Platelet Volume 8.7 fL (7.4-10.4); Platelet Count 75 thou/uL (130-400); Red Blood Cell (RBC) Count 2.34 mill/uL (4.00-5.20); White Blood Cell (WBC) Count 6.3 thou/uL (4.8-10.8)
[2019-09-01 01:20] LABS: INR-International Normal Ratio 1.2; Prothrombin Time 15.6 SEC (12.0-14.7)
[2019-09-01 01:21] LABS: PTT 29.4 SEC (22.9-36.1)
[2019-09-01 01:33] LABS: Lactic Acid 1.5 mmol/L (0.5-2.2)
[2019-09-01 01:44] LABS: ALT (SGPT) 74 U/L (8-55); AST (SGOT) 117 U/L (10-45); Albumin 3.2 g/dL (3.5-5.0); Alkaline Phosphatase 52 U/L (50-130); Anion Gap 13 mmol/L (10-20); BUN (Urea Nitrogen) 11 mg/dL (8.4-21.0); Bilirubin, Direct 0.5 mg/dL (0.1-0.3); Calc. Creatinine Clearance 0 mL/min (70-130); Calcium 8.1 mg/dL (7.8-10.44); Carbon Dioxide 23 mmol/L (22-29); Chloride 114 mmol/L (98-107); Estimated GFR-MDRD Greater than 90; Gamma GT (GGT) 33 U/L (12-64); Globulin 2.3 g/dL (2.4-3.5); Glucose 164 mg/dL (70-105); Lipase 9 U/L (8-78); Magnesium 1.8 mg/dL (1.7-2.2); Phosphorus 2.7 mg/dL (2.3-4.7); Potassium 3.7 mmol/L (3.5-5.1); Protein, Total 5.5 g/dL (6.0-8.3); Sodium 146 mmol/L (136-145)
[2019-09-01 01:49] LABS: Critical Call Chem Troponin I RESULT DECREASING; Troponin I 1.739 ng/mL (< 0.028)
[2019-09-01 01:52] LABS: CK (CPK) 6178 U/L (30-200)
[2019-09-01] MEDS ORDERED: Magnesium 2 GM/50 ML 2 GM in Premix Bag 1 BAG IVPB SCH (02:15)
[2019-09-01] MEDS ORDERED: Potassium Chloride 20 MEQ in Premix Bag 1 BAG IVPB SCH ×2 (02:15→20:45)
[2019-09-01] MEDS: Levothyroxine Sodium 400 MCG in Sodium Chloride 0.9% 100 ML IVPB SCH (02:57)
[2019-09-01] MEDS: Albuterol Sulfate 2.5 mg/3 ml Neb NEB SCH ×6 (03:12→22:20)
[2019-09-01 03:21] LABS: Actual Bicarbonate (HCO3a) 23.1 mEq/L (22-28); Base Excess (BEa) -1.1 mEq/L (-2.0 to +3.0); CO2 Tension 35.6 mmHg (35.0-45.0); Calcium, Ionized 1.15 mmol/L (1.12-1.30); Carboxyhemoglobin (COHb) 1.7 gm% (0.0-3.0); Hemoglobin (Hb) 6.8 g/dL (11.4-15.4); O2 Tension (PaO2) 128.8 mmHg (80.0-100.0); Potassium - ABG Lab 4.06 mmol/L (3.70-5.30); pH, Arterial 7.43 (7.35-7.45)
[2019-09-01 03:22] LABS: Puncture Site ART LINE
[2019-09-01] MEDS: Sodium Chloride 0.45% 1,000 ML IV SCH ×2 (03:53→16:04)
[2019-09-01] MEDS: Bumetanide 1 MG/4 ML VIAL IVP SCH ×2 (03:55→04:26)
[2019-09-01] MEDS: Piperacillin/Tazobactam 3.375 GM in Sodium Chloride 0.9% 100 ML IVPB SCH ×3 (05:19→17:57)
[2019-09-01 07:23] LABS: Bilirubin Negative (Negative); Blood, Urine 3+ (Negative); Clarity Clear (Clear); Glucose, Urine (Dipstick) Greater than 1000 mg/dL (Negative); Leukocyte Negative Leu/uL (Negative); Nitrite Negative (Negative); Protein, Urine (Dipstick) 70 mg/dL (Neg-Trace); Squamous Epithelial None Seen HPF (0-3); Urobilinogen Normal mg/dL (Less than 2)
[2019-09-01 07:37] LABS: Hemoglobin 7.7 g/dL (14.0-18.0); Mean Corpuscular HGB CONC 34.8 g/dL (32.0-36.0); Mean Corpuscular Hemoglobin 30.9 pg (25.0-35.0); Mean Corpuscular Volume 88.6 fL (78.0-98.0); Mean Platelet Volume 8.8 fL (7.4-10.4); Platelet Count 80 thou/uL (130-400); Red Blood Cell (RBC) Count 2.49 mill/uL (4.00-5.20); White Blood Cell (WBC) Count 7.7 thou/uL (4.8-10.8)
[2019-09-01 07:40] LABS: Bacteria/HPF 1+ HPF (None Seen)
[2019-09-01 07:42] LABS: INR-International Normal Ratio 1.2; PTT 30.3 SEC (22.9-36.1); Prothrombin Time 15.6 SEC (12.0-14.7)
[2019-09-01 07:43] LABS: Actual Bicarbonate (HCO3a) 23.2 mEq/L (22-28); Base Excess (BEa) -1.5 mEq/L (-2.0 to +3.0); CO2 Tension 38.5 mmHg (35.0-45.0); Calcium, Ionized 1.16 mmol/L (1.12-1.30); Carboxyhemoglobin (COHb) 1.7 gm% (0.0-3.0); Hemoglobin (Hb) 7.4 g/dL (11.4-15.4); O2 Tension (PaO2) 125.9 mmHg (80.0-100.0); Potassium - ABG Lab 3.64 mmol/L (3.70-5.30)
[2019-09-01 07:44] LABS: ALV-art Gradient 253.775 (0-20); Puncture Site ALINE
[2019-09-01 07:53] LABS: Lactic Acid 1.5 mmol/L (0.5-2.2)
[2019-09-01 07:59] LABS: ALT (SGPT) 72 U/L (8-55); AST (SGOT) 113 U/L (10-45); Albumin 3.6 g/dL (3.5-5.0); Alkaline Phosphatase 57 U/L (50-130); Anion Gap 14 mmol/L (10-20); BUN (Urea Nitrogen) 10 mg/dL (8.4-21.0); Bilirubin, Direct 0.5 mg/dL (0.1-0.3); Bilirubin, Total 1.2 mg/dL (0.2-1.2); Calc. Creatinine Clearance 0 mL/min (70-130); Calcium 8.7 mg/dL (7.8-10.44); Carbon Dioxide 22 mmol/L (22-29); Chloride 114 mmol/L (98-107); Estimated GFR-MDRD Greater than 90; Gamma GT (GGT) 33 U/L (12-64); Globulin 2.4 g/dL (2.4-3.5); Glucose 174 mg/dL (70-105); Lipase 8 U/L (8-78); Magnesium 2.2 mg/dL (1.7-2.2); Phosphorus 2.2 mg/dL (2.3-4.7); Potassium 3.7 mmol/L (3.5-5.1); Sodium 146 mmol/L (136-145)
[2019-09-01 08:07] LABS: Critical Call Chem Troponin I RESULT DECREASING; Troponin I 1.498 ng/mL (< 0.028)
[2019-09-01 08:13] LABS: CK (CPK) 6116 U/L (30-200)
[2019-09-01 09:04] LABS: Band 35 % (5-11); Lymphocytes 8 % (28-48); MDiff Complete? YES; Metamyelocyte 2 % (0-0); Monocytes 1 % (0-4); Myelocyte 2 % (0-0); Neutrophil 52 % (31-61); Nucleated RBC 1 % (0); Platelet Morphology Comment Appears Decreased; Polychromasia SLIGHT = 2-3 cells (100X) (0-2/hpf)
[2019-09-01] MEDS ORDERED: POTASSIUM CHLORIDE IVPB ONE (11:15)
[2019-09-01] MEDS ORDERED: [UNRECOGNIZED DRUG - OTHER] IVPB ONE (11:15)
[2019-09-01] MEDS ORDERED: POTASSIUM PHOSPHATE IVPB ONE (11:15)
[2019-09-01] MEDS ORDERED: MAGNESIUM SULFATE IVPB ONE (11:15)
[2019-09-01 13:58] LABS: Actual Bicarbonate (HCO3a) 22.8 mEq/L (22-28); Base Excess (BEa) -1.7 mEq/L (-2.0 to +3.0); CO2 Tension 37.9 mmHg (35.0-45.0); Calcium, Ionized 1.19 mmol/L (1.12-1.30); O2 Tension (PaO2) 122.6 mmHg (80.0-100.0); Potassium - ABG Lab 3.33 mmol/L (3.70-5.30)
[2019-09-01 14:01] LABS: Puncture Site LINE
[2019-09-01 14:02] LABS: ALV-art Gradient 257.825 (0-20)
[2019-09-01 14:24] LABS: Hemoglobin 8.4 g/dL (14.0-18.0); INR-International Normal Ratio 1.3; Mean Corpuscular HGB CONC 34.3 g/dL (32.0-36.0); Mean Corpuscular Hemoglobin 30.6 pg (25.0-35.0); Mean Corpuscular Volume 89.1 fL (78.0-98.0); Mean Platelet Volume 8.7 fL (7.4-10.4); Platelet Count 99 thou/uL (130-400); Prothrombin Time 15.9 SEC (12.0-14.7); RBC Distribution Width 13.3 % (11.5-14.5); Red Blood Cell (RBC) Count 2.75 mill/uL (4.00-5.20); White Blood Cell (WBC) Count 13.1 thou/uL (4.8-10.8)
[2019-09-01 14:25] LABS: PTT 28.8 SEC (22.9-36.1)
[2019-09-01 14:31] LABS: Lactic Acid 1.3 mmol/L (0.5-2.2)
[2019-09-01 14:45] LABS: Critical Call Chem Troponin I RESULT DECREASING; Troponin I 1.389 ng/mL (< 0.028)
[2019-09-01 14:46] LABS: ALT (SGPT) 79 U/L (8-55); AST (SGOT) 116 U/L (10-45); Albumin 4.2 g/dL (3.5-5.0); Alkaline Phosphatase 71 U/L (50-130); Anion Gap 16 mmol/L (10-20); BUN (Urea Nitrogen) 9 mg/dL (8.4-21.0); Bilirubin, Direct 0.7 mg/dL (0.1-0.3); Bilirubin, Total 1.5 mg/dL (0.2-1.2); Calc. Creatinine Clearance 0 mL/min (70-130); Calcium 9.2 mg/dL (7.8-10.44); Carbon Dioxide 25 mmol/L (22-29); Chloride 114 mmol/L (98-107); Estimated GFR-MDRD Greater than 90; Gamma GT (GGT) 37 U/L (12-64); Globulin 2.7 g/dL (2.4-3.5); Glucose 189 mg/dL (70-105); Lipase 12 U/L (8-78); Magnesium 2.5 mg/dL (1.7-2.2); Phosphorus 2.8 mg/dL (2.3-4.7); Potassium 3.1 mmol/L (3.5-5.1); Protein, Total 6.9 g/dL (6.0-8.3); Sodium 152 mmol/L (136-145)
[2019-09-01 14:54] LABS: CK (CPK) 6210 U/L (30-200)
[2019-09-01 14:55] LABS: Band 36 % (5-11); Lymphocytes 2 % (28-48); MDiff Complete? YES; Metamyelocyte 2 % (0-0); Monocytes 1 % (0-4); Myelocyte 4 % (0-0); Neutrophil 55 % (31-61); Nucleated RBC 1 % (0); Platelet Morphology Comment Appears Decreased; Polychromasia MODERATE = 3-4 cells (100X) (0-2/hpf)
[2019-09-01] MEDS ORDERED: Potassium Chloride 40 MEQ in Premix Bag 1 BAG IVPB SCH (15:15)
[2019-09-01] MEDS ORDERED: Insulin Regular 300 UNITS/3 ML VIAL IVP SCH ×2 (16:00→23:30)
[2019-09-01 16:29] VITALS: TEMP 98.6
--- NOTE | 2019-09-01 17:58 | RAD ---
RADIOGRAPH CHEST 1 VIEW: DATE: 09/01/2019 TIME: 5:40 PM HISTORY: 18-year-old male follow-up abnormal chest radiograph. Organ donor. COMPARISON: 08/31/2019 7:30 PM FINDINGS: Endotracheal tube remains 5.5 cm superior to jeevan. Chest tube remains with distal tip at left media l apex. Esophagogastric tube remains. No cardiomegaly. Consolidation of moderate size involving the left mid-lung zone, upper lobe. Medial left lower lobe consolidation remains. Subcutaneous emphysema in the bilateral neck and left chest and shoulder. No pneumothorax visualized. No interval change. IMPRESSION: 1. Left upper lobe and left lower lobe consolidations. 2. No change in life support lines. 3. No change in subcutaneous emphysema. 4. No interval change overall.
--- NOTE | 2019-09-01 18:09 | OP ---
DATE OF PROCEDURE: 09/01/2019 PROCEDURE PERFORMED: Transesophageal echo. DESCRIPTION OF PROCEDURE: Transesophageal echo was performed to evaluate LV function and valvular structures as transthoracic echo was inadequate. The patient is being considered for a heart transplant recipient. Transesophageal probe was inserted into the mouth and into the esophagus with some difficulty. We obtained multiplanar views. Left ventricle is normal size, normal wall thickness. Systolic function is normal. Estimated EF at 60% to 65%. No regional wall motion abnormality. Left atrium is normal size. Right atrium is normal size. Right ventricle is normal size. Normal systolic function. Aortic valve is structurally normal with 3 cusps. No stenosis or regurgitation. Mitral valve is structurally normal. There is no stenosis, trace mitral regurgitation. Tricuspid valve is structurally normal. There is mild TR. No stenosis. Pulmonary valve is structurally normal with mild regurgitation. Agitated saline study showed no evidence of intracardiac shunt. CONCLUSIONS: 1. Normal systolic function, EF at 60% to 65%. 2. Trace MR. 3. Mild TR. 4. Mild PI. Job ID: [id number]
[2019-09-01 19:07] LABS: Actual Bicarbonate (HCO3a) 21.8 mEq/L (22-28); Base Excess (BEa) -2.2 mEq/L (-2.0 to +3.0); Calcium, Ionized 1.17 mmol/L (1.12-1.30); Carboxyhemoglobin (COHb) 0.5 gm% (0.0-3.0); Hemoglobin (Hb) 7.8 g/dL (11.4-15.4); O2 Tension (PaO2) 155.3 mmHg (80.0-100.0); Potassium - ABG Lab 3.29 mmol/L (3.70-5.30); pH, Arterial 7.43 (7.35-7.45)
[2019-09-01 19:08] LABS: Bacteria/HPF None Seen HPF (None Seen); Bilirubin Negative (Negative); Blood, Urine 2+ (Negative); Clarity Clear (Clear); Glucose, Urine (Dipstick) 500 mg/dL (Negative); Leukocyte Negative Leu/uL (Negative); Nitrite Negative (Negative); Protein, Urine (Dipstick) 50 mg/dL (Neg-Trace); RBC/HPF 0-3 HPF (0-3); Squamous Epithelial None Seen HPF (0-3); Urobilinogen Normal mg/dL (Less than 2); WBC/HPF 0-3 HPF (0-3)
[2019-09-01 19:09] LABS: Puncture Site ALINE
[2019-09-01 19:22] LABS: Mean Corpuscular HGB CONC 33.9 g/dL (32.0-36.0); Mean Corpuscular Hemoglobin 30.5 pg (25.0-35.0); Mean Corpuscular Volume 89.9 fL (78.0-98.0); Mean Platelet Volume 8.3 fL (7.4-10.4); Platelet Count 102 thou/uL (130-400); RBC Distribution Width 13.2 % (11.5-14.5); Red Blood Cell (RBC) Count 2.63 mill/uL (4.00-5.20)
[2019-09-01 19:29] LABS: INR-International Normal Ratio 1.3; PTT 28.4 SEC (22.9-36.1); Prothrombin Time 16.1 SEC (12.0-14.7)
[2019-09-01 19:37] LABS: Band 28 % (5-11); Lymphocytes 2 % (28-48); MDiff Complete? YES; Metamyelocyte 4 % (0-0); Monocytes 3 % (0-4); Myelocyte 3 % (0-0); Neutrophil 59 % (31-61); Nucleated RBC 1 % (0); Platelet Morphology Comment Appears Decreased; Polychromasia MODERATE = 3-4 cells (100X) (0-2/hpf); Promyelocytes 1 % (0-0)
[2019-09-01 19:43] LABS: ALT (SGPT) 68 U/L (8-55); AST (SGOT) 102 U/L (10-45); Albumin 4.2 g/dL (3.5-5.0); Alkaline Phosphatase 68 U/L (50-130); Anion Gap 18 mmol/L (10-20); BUN (Urea Nitrogen) 9 mg/dL (8.4-21.0); Bilirubin, Direct 0.8 mg/dL (0.1-0.3); Bilirubin, Total 1.6 mg/dL (0.2-1.2); Calc. Creatinine Clearance 0 mL/min (70-130); Calcium 9.2 mg/dL (7.8-10.44); Carbon Dioxide 24 mmol/L (22-29); Chloride 115 mmol/L (98-107); Estimated GFR-MDRD Greater than 90; Gamma GT (GGT) 36 U/L (12-64); Globulin 2.6 g/dL (2.4-3.5); Glucose 177 mg/dL (70-105); Lipase 16 U/L (8-78); Magnesium 2.4 mg/dL (1.7-2.2); Phosphorus 2.7 mg/dL (2.3-4.7); Potassium 3.2 mmol/L (3.5-5.1); Protein, Total 6.8 g/dL (6.0-8.3); Sodium 154 mmol/L (136-145)
[2019-09-01 19:57] LABS: CK (CPK) 5702 U/L (30-200)
[2019-09-01 20:02] LABS: Critical Call Chem Troponin I RESULT DECREASING; Troponin I 1.334 ng/mL (< 0.028)
[2019-09-01] MEDS: Potassium Chloride 20 MEQ in Premix Bag 1 BAG IVPB SCH ×2 (20:51→21:35)
[2019-09-02] MEDS: Piperacillin/Tazobactam 3.375 GM in Sodium Chloride 0.9% 100 ML IVPB SCH ×2 (00:12→05:30)
[2019-09-02] MEDS: Sodium Chloride 0.45% 1,000 ML IV SCH (01:02)
[2019-09-02 01:37] LABS: Hemoglobin 7.7 g/dL (14.0-18.0); Mean Corpuscular HGB CONC 34.5 g/dL (32.0-36.0); Mean Corpuscular Hemoglobin 31.1 pg (25.0-35.0); Mean Corpuscular Volume 90.1 fL (78.0-98.0); Platelet Count 109 thou/uL (130-400); RBC Distribution Width 13.3 % (11.5-14.5); Red Blood Cell (RBC) Count 2.46 mill/uL (4.00-5.20); White Blood Cell (WBC) Count 13.2 thou/uL (4.8-10.8)
[2019-09-02 01:39] LABS: INR-International Normal Ratio 1.3; Prothrombin Time 16.3 SEC (12.0-14.7)
[2019-09-02 02:01] LABS: Troponin I 1.347 ng/mL (< 0.028)
[2019-09-02 02:03] LABS: ALT (SGPT) 66 U/L (8-55); AST (SGOT) 92 U/L (10-45); Alkaline Phosphatase 65 U/L (50-130); Anion Gap 12 mmol/L (10-20); BUN (Urea Nitrogen) 11 mg/dL (8.4-21.0); Bilirubin, Direct 0.7 mg/dL (0.1-0.3); Bilirubin, Total 1.3 mg/dL (0.2-1.2); Calc. Creatinine Clearance 0 mL/min (70-130); Calcium 9.4 mg/dL (7.8-10.44); Carbon Dioxide 28 mmol/L (22-29); Chloride 122 mmol/L (98-107); Estimated GFR-MDRD Greater than 90; Gamma GT (GGT) 38 U/L (12-64); Globulin 2.6 g/dL (2.4-3.5); Glucose 191 mg/dL (70-105); Lipase 25 U/L (8-78); Magnesium 2.6 mg/dL (1.7-2.2); Potassium 3.1 mmol/L (3.5-5.1); Protein, Total 6.6 g/dL (6.0-8.3); Sodium 159 mmol/L (136-145)
[2019-09-02 02:05] LABS: Band 22 % (5-11); Lymphocytes 7 % (28-48); MDiff Complete? YES; Metamyelocyte 1 % (0-0); Monocytes 6 % (0-4); Neutrophil 64 % (31-61); Nucleated RBC 4 % (0); Platelet Morphology Comment Appears Decreased
[2019-09-02] MEDS ORDERED: Albumin 5% 250 ML ONE (02:17)
[2019-09-02 02:19] LABS: CK (CPK) 4881 U/L (30-200)
[2019-09-02] MEDS ORDERED: Potassium Chloride 20 MEQ in Premix Bag 1 BAG IVPB SCH (02:30)
[2019-09-02] MEDS ORDERED: Potassium Phosphate 20 MMOL in Sodium Chloride 0.9% 250 ML 250 ML IVPB SCH (02:30)
[2019-09-02] MEDS: Insulin Regular 100 units/100 ml in NS IVPB SCH ×2 (02:35→11:06)
[2019-09-02] MEDS: Albuterol Sulfate 2.5 mg/3 ml Neb NEB SCH ×3 (02:54→10:40)
[2019-09-02 02:56] VITALS: BP 130/66
[2019-09-02 05:36] LABS: Sodium 160 mmol/L (136-145)
[2019-09-02 05:38] LABS: Potassium 2.9 mmol/L (3.5-5.1)
[2019-09-02] MEDS ORDERED: 1/2 NS w/KCL 20 mEq 1,000 ML IV SCH (06:00)
[2019-09-02] MEDS ORDERED: Potassium Chloride 60 MEQ in Sodium Chloride 0.9% 250 ML 250 ML IVPB SCH (06:30)
[2019-09-02 07:18] LABS: Mean Corpuscular HGB CONC 34.3 g/dL (32.0-36.0); Mean Corpuscular Hemoglobin 31.1 pg (25.0-35.0); Mean Corpuscular Volume 90.6 fL (78.0-98.0); Mean Platelet Volume 7.9 fL (7.4-10.4); Platelet Count 103 thou/uL (130-400); RBC Distribution Width 13.2 % (11.5-14.5); Red Blood Cell (RBC) Count 2.26 mill/uL (4.00-5.20); White Blood Cell (WBC) Count 11.2 thou/uL (4.8-10.8)
[2019-09-02 07:23] LABS: INR-International Normal Ratio 1.4; PTT 29.7 SEC (22.9-36.1); Prothrombin Time 17.2 SEC (12.0-14.7)
[2019-09-02 07:27] LABS: Bilirubin Negative (Negative); Blood, Urine 2+ (Negative); Calcium Oxalate Crystals 3+ HPF (None Seen); Clarity Turbid (Clear); Glucose, Urine (Dipstick) 300 mg/dL (Negative); Leukocyte Negative Leu/uL (Negative); Nitrite Negative (Negative); Protein, Urine (Dipstick) 100 mg/dL (Neg-Trace); Squamous Epithelial None Seen HPF (0-3); Urobilinogen Normal mg/dL (Less than 2)
[2019-09-02 07:34] LABS: Unclassified Crystals 3+ HPF (None Seen)
[2019-09-02 07:39] LABS: Bacteria/HPF Rare-Few HPF (None Seen); RBC/HPF 0-3 HPF (0-3); WBC/HPF 0-3 HPF (0-3)
[2019-09-02 07:45] LABS: ALT (SGPT) 59 U/L (8-55); AST (SGOT) 78 U/L (10-45); Albumin 3.8 g/dL (3.5-5.0); Alkaline Phosphatase 61 U/L (50-130); Anion Gap 13 mmol/L (10-20); BUN (Urea Nitrogen) 13 mg/dL (8.4-21.0); Bilirubin, Direct 0.8 mg/dL (0.1-0.3); Bilirubin, Total 1.6 mg/dL (0.2-1.2); Calc. Creatinine Clearance 0 mL/min (70-130); Carbon Dioxide 27 mmol/L (22-29); Chloride 124 mmol/L (98-107); Estimated GFR-MDRD Greater than 90; Gamma GT (GGT) 38 U/L (12-64); Globulin 2.5 g/dL (2.4-3.5); Glucose 156 mg/dL (70-105); Lipase 32 U/L (8-78); Magnesium 2.5 mg/dL (1.7-2.2); Phosphorus 2.4 mg/dL (2.3-4.7); Potassium 3.9 mmol/L (3.5-5.1); Protein, Total 6.3 g/dL (6.0-8.3); Sodium 160 mmol/L (136-145)
[2019-09-02 07:53] LABS: Critical Call Chem Troponin I RESULT DECREASING; Troponin I 1.092 ng/mL (< 0.028)
[2019-09-02 07:57] LABS: CK (CPK) 4242 U/L (30-200)
[2019-09-02 08:21] LABS: Band 27 % (5-11); Lymphocytes 6 % (28-48); MDiff Complete? YES; Metamyelocyte 5 % (0-0); Monocytes 7 % (0-4); Myelocyte 2 % (0-0); Neutrophil 53 % (31-61); Nucleated RBC 3 % (0); Platelet Morphology Comment Appears Decreased; Polychromasia SLIGHT = 2-3 cells (100X) (0-2/hpf)
--- NOTE | 2019-09-02 09:32 | RAD ---
CHEST 1 VIEW: HISTORY: Followup. COMPARISON: Radiograph of prior day. FINDINGS: Endotracheal tube tip is above the clavicles approximately 2.5 cm. Left upper lobe pulmonary contusi on is similar. Left thoracostomy tube is similar with tip near the lung apex. Improving aeration of the right lung. Mild subcutaneous emphysema. The remainder of the findings are similar. IMPRESSION: 1. Improved aeration of the right lung. 2. Satisfactory and similar location of the enteric and endotracheal tubes. POS: C
[2019-09-02] MEDS ORDERED: Mannitol 12.5 GM/50 ML ONE ×2 (14:52→14:55)
[2019-09-02] MEDS ORDERED: Furosemide 100 MG/10 ML VIAL SLOW IVP SCH (15:00)
[2019-09-02] MEDS ORDERED: Sodium Hypochlorite 0.25% Solution 480 ML BOT TOP SCH (15:45)
[2019-09-02] MEDS ORDERED: Sodium Hypochlorite 0.5% 473 ML BOT TOP SCH (15:45)
== END 2019-09-02 15:25 | disposition expired ==
LOC: SDC 16:15 → CCU 18:24 → SDC 09-02 15:25
PROC: B24BZZ4 Ultrasonography of Heart with Aorta, Transesophageal (ICD-10-PCS; principal; 2019-09-01)
DX: Z00.5 Encounter for examination of potential donor of organ and tissue (principal); I07.1 Rheumatic tricuspid insufficiency; I37.1 Nonrheumatic pulmonary valve insufficiency
CPT/HCPCS: 36416; 36430; 71045; 80053; 81001; 82150; 82248; 82550; 82805; 82977; 83036; 83605; 83690; 83735; 84100; 84484; 85025; 85384; 85610; 85730; 86850; 86900; 86901; 93005; 93010; 93312; 94002; 94003; 94640; J1815; J2150; J2543; J2930; J3370; J3430; J3475; J3480; J3490; J7050; J7611; P9016; P9045; P9047